=== PATIENT | female | born 1950 | race Caucasian/White ===

== ENCOUNTER 2019-01-17 13:29 | Day surgery (SDC) | payer MEDICARE, OTHER ==
--- NOTE | 2019-01-17 14:06 | ER Document Report ---
ED General - General Chief Complaint: Arm Injury Stated Complaint: FALL/ARM PAIN Time Seen by Provider: 01/17/19 13:53 - HPI Notes: Patient is a 68-year-old female with a history of hypertension and hypothyroidism who presents to the emergency department complaining of right forearm/elbow pain status post fall injury prior to arrival. 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 Patient states that she did not hit her head or lose conscious. She did not injure any other part of her body. Patient states that she has been ambulatory since then without any difficulties. Patient has noticed swelling and bruising to her right proximal forearm with associated pain. Patient states that the pain will radiate down the forearm and slightly proximal to the elbow. She is not on any blood thinning medications aside from a baby aspirin. Her last tetanus was within the last 2 years. Denies drug allergies. Denies any headache, fever, head injury, neck pain, changes in vision/speech/mentation/hearing, URI, sore throat, chest pain, palpitations, syncope, cough, shortness of breath, wheeze, dyspnea, abdominal pain, nausea/vomiting/diarrhea, urinary retention, dysuria, hematuria, loss of control of bowel or bladder, numbness/tingling, saddle anesthesia, muscle paralysis, or rash. - Related Data Allergies/Adverse Reactions: No Known Allergies Allergy (Verified 01/17/19 13:39) Past Medical History - Social History Smoking Status: Former Smoker Drug Abuse: None Family History: Reviewed & Not Pertinent Patient has suicidal ideation: No Patient has homicidal ideation: No - Past Medical History Cardiac Medical History: Reports: Hx Hypertension Renal/ Medical History: Denies: Hx Peritoneal Dialysis Past Surgical History: Reports: Hx Cholecystectomy, Hx Orthopedic Surgery - Bilateral hip Review of Systems - Review of Systems -: Yes All other systems reviewed and negative Physical Exam - Vital signs Vitals: Temp Pulse Resp BP Pulse Ox 97.7 F 66 16 120/65 98 01/17/19 15:53 01/17/19 15:53 01/17/19 15:53 01/17/19 15:53 01/17/19 15:53 - Notes Notes: PHYSICAL EXAMINATION: GENERAL: Well-appearing, well-nourished and in no acute distress. A&Ox4. Answers questions appropriately. HEAD: Atraumatic, normocephalic. Non-tender. EYES: Pupils equal round and reactive to light, extraocular movements intact, sclera anicteric, conjunctiva are normal. ENT: EAC clear b/l. TM's intact b/l without erythema, fluid, or perforation. Nares patent and without discharge. oropharynx clear without exudates. No tonsilar hypertrophy or erythema. Moist mucous membranes. No sinus tenderness. NECK: Normal range of motion, supple without lymphadenopathy. No rigidity/meningismus. No midline tenderness. LUNGS: Breath sounds clear to auscultation bilaterally and equal. No wheezes rales or rhonchi. HEART: Regular rate and rhythm without murmurs, rubs, gallops. ABDOMEN: Soft, nontender, nondistended abdomen. No guarding, no rebound. Normal bowel sounds present. No CVA tenderness bilaterally. Musculoskeletal: Rt UE: there is noted swelling, ecchymosis to the rt proximal posterior forearm with associated tenderness. No tenderness to the humerus, distal forearm/hand, or shoulder. N/V intact distal. + skin abrasion Ext's otherwise b/l: FROM to passive/active. Strength 5+/5. No deficits noted. No bony tenderness of extremities. Extremities: No cyanosis, clubbing, or edema b/l. Peripheral pulses 2+. Capillary refill less than 2 seconds. NEUROLOGICAL: GCS 15. Cranial nerves grossly intact. Normal speech, normal gait. Normal sensory, motor exams. Reflexes 2+ b/l. PSYCH: Normal mood, normal affect. SKIN: see above. Course - Re-evaluation Re-evalutation: 01/17/19 14:06 Pt was given fentanyl by EMS. XR ordered. 01/17/19 14:10 I looked at the raw films and noticed multiple areas of fracture. Waiting for radiologist read and then will consult Orthopedics. Pt pain currently under control. Pt notified of preliminary result(s). Last PO intake was around 8am this morning. 01/17/19 14:40 Patient is an afebrile, well-hydrated, 68-year-old female who presents emergency department with fractures to the right proximal forearm as noted, see results. Vitals are currently acceptable without significant tachycardia, tachypnea, or hypoxia. PE is otherwise unremarkable for any neurovascular compromise, open fracture, or septic joint. I did speak with Dr. Oropeza, orthopedics, who provided the patient with an option of being admitted tonight for surgery tomorrow or follow-up in the office first thing Friday. Patient prefers to be admitted tonight. I did speak with Dr. Oropeza again who accepted patient for admit under his service. Preop labs and imaging ordered. A posterior long-arm splint will be placed as well as a sling provided. Patient given another dose of pain medicine. Patient is in agreement with this plan. - Vital Signs Vital signs: Temp Pulse Resp BP Pulse Ox 97.7 F 66 16 120/65 98 01/17/19 15:53 01/17/19 15:53 01/17/19 15:53 01/17/19 15:53 01/17/19 15:53 - Laboratory Result Diagrams: 01/17/19 15:12 01/17/19 15:12 Laboratory results interpreted by me: 01/17/19 15:12 Seg Neutrophils % 79.5 H Procedures - Immobilization Right Arm Time completed: 15:53 Pre-Proc Neuro Vasc Exam: Normal Immobilizer type: Long arm posterior Performed by: PCT Post-Proc Neuro Vasc Exam: Normal, Unchanged from pre-exam Discharge - Discharge Clinical Impression: Closed right forearm fracture Qualifiers: Encounter type: initial encounter Qualified Code(s): S52.91XA - Unspecified fracture of right forearm, initial encounter for closed fracture Condition: Stable Disposition: ADMITTED INPATIENT Admitting Provider: Dr. Oropeza Unit Admitted: Surgical Floor
--- NOTE | 2019-01-17 14:23 | RADIOLOGY REPORT (SQ) ---
EXAM DESCRIPTION: FOREARM RIGHT COMPLETED DATE/TIME: 01/17/2019 2:12 pm REASON FOR STUDY: Fall, Pain/swelling to RUE COMPARISON: None. NUMBER OF VIEWS: Two views. TECHNIQUE: Two radiographic images acquired of the right forearm, including elbow and wrist in at le ast one projection. LIMITATIONS: None. FINDINGS: MINERALIZATION: Normal. BONES: Proximal ulnar metaphyseal fracture with 6 mm of anterior displacement. There is also a mildl y comminuted radial neck fracture with mild posterior angulation and impaction. Probable coronoid pr ocess fracture, well corticated and possibly chronic. Old avulsion changes medially on the proximal ulna and distal humeral epicondyle. . SOFT TISSUES: Moderate posterior swelling OTHER: No other significant finding. IMPRESSION: Proximal ulnar metaphyseal fracture with 6 mm of anterior displacement. There is also a mildly comminuted radial neck fracture with mild posterior angulation and impaction. Probable coron oid process fracture, well corticated and possibly chronic. Old avulsion changes medially on the pro ximal ulna and distal humeral epicondyle. TECHNICAL DOCUMENTATION: JOB ID: [id number] [place]-72 2010 [employer]- All Rights Reserved Reading location - IP/workstation name: [email or web address]
[2019-01-17] MEDS ORDERED: FENTANYL CITRATE INJ/PF 100 MCG/2 ML AMPUL IV ONE (14:39)
[2019-01-17] MEDS ORDERED: HYDROMORPHONE HCL INJ/PF 2 MG/ML AMPULE IV ONE (14:45)
[2019-01-17 15:42] LABS: ABSOLUTE EOSINOPHILS # (AUTO) 0.1 10^3/uL (0.0-0.6); ABSOLUTE LYMPHOCYTES (AUTO) 1.3 10^3/uL (0.5-4.7); ABSOLUTE MONOCYTES (AUTO) 0.6 10^3/uL (0.1-1.4); ABSOLUTE NEUT (AUTO) 7.8 10^3/uL (1.7-8.2); BASOPHILS % (AUTO) 0.3 % (0-2); EOSINOPHILS % (AUTO) 0.6 % (0-6); HEMATOCRIT 38.8 % (36.0-47.0); HEMOGLOBIN 13.7 g/dL (12.0-15.5); MEAN CORPUSCULAR HEMOGLOBIN 31.5 pg (27.0-33.4); MEAN CORPUSCULAR HGB CONC 35.3 g/dL (32.0-36.0); MEAN CORPUSCULAR VOLUME 89 fl (80-97); MONOCYTES % (AUTO) 6.6 % (3-13); PLATELET COUNT 244 10^3/uL (150-450); RED BLOOD COUNT 4.36 10^6/uL (3.72-5.28); RED CELL DISTRIBUTION WIDTH 13.9 % (11.5-14.0); SEGMENTED NEUTROPHILS % (AUTO) 79.5 % (42-78); TOTAL CELLS COUNTED % (AUTO) 100 %; WHITE BLOOD COUNT 9.8 10^3/uL (4.0-10.5)
[2019-01-17] MEDS ORDERED: ACETAMINOPHEN 325 MG TABLET PO ONE (15:54)
[2019-01-17 16:01] LABS: ALANINE AMINOTRANSFERASE 30 U/L (9-52); ALBUMIN 3.8 g/dL (3.5-5.0); ALKALINE PHOSPHATASE 100 U/L (38-126); ANION GAP 7 (5-19); ASPARTATE AMINO TRANSFERASE 27 U/L (14-36); BILIRUBIN,DIRECT 0.2 mg/dL (0.0-0.4); BILIRUBIN,TOTAL 0.4 mg/dL (0.2-1.3); BLOOD UREA NITROGEN 17 mg/dL (7-20); CALCIUM 9.3 mg/dL (8.4-10.2); CARBON DIOXIDE 30 mmol/L (22-30); CHLORIDE 103 mmol/L (98-107); GLUCOSE 82 mg/dL (75-110); INTERNATIONAL RATION (INR) 0.98; POTASSIUM 4.3 mmol/L (3.6-5.0); PROTHROMBIN TIME 13.5 SEC (11.4-15.4); SODIUM 140.2 mmol/L (137-145)
[2019-01-17 16:02] LABS: PARTIAL THROMBOPLASTIN TIME 30.8 SEC (23.5-35.8)
--- NOTE | 2019-01-17 16:12 | RADIOLOGY REPORT (SQ) ---
EXAM DESCRIPTION: CHEST SINGLE VIEW COMPLETED DATE/TIME: 01/17/2019 3:52 pm REASON FOR STUDY: pre-op COMPARISON: None. FINDINGS: Single-view chest AP portable upright obtained preoperatively. Heart size looks slightly prominent. Some of this may be portable technique. Mild central vascular congestion. Lungs are otherwise clear. IMPRESSION: Top normal to mildly enlarged heart with mild vascular congestion. TECHNICAL DOCUMENTATION: JOB ID: [id number] Reading location - IP/workstation name: [email or web address]
[2019-01-17] MEDS ORDERED: ONDANSETRON 4 MG TAB.RAPDIS SL PRN (23:35)
[2019-01-18] MEDS ORDERED: RINGERS SOLUTION,LACTATED 1,000 ML IV PRN
[2019-01-18] MEDS: MORPHINE SULFATE 10 MG/ML INJ IV PRN ×3 (00:02→09:27)
--- NOTE | 2019-01-18 00:04 | EKG REPORT ---
SEVERITY:- NORMAL ECG - SINUS RHYTHM : Confirmed by: Timo Kapoor 18-Jan-2019 00:04:13
[2019-01-18] MEDS ORDERED: LEVOTHYROXINE SODIUM 0.025 MG TABLET PO SCH (06:00)
--- NOTE | 2019-01-18 06:57 | PDOC H&P ---
History of Present Illness Admission Date/PCP: 01/17/19 15:33 History of Present Illness: TIFFANY WEBSTER is a 68 year old female with a noncontributory past medical history who fell onto an outstretched right upper extremity and sustained a variant of the Monteggia fracture. Patient is admitted to the orthopedic service for fracture management. Past Medical History Cardiac Medical History: Reports: Hypertension Denies: Congestive Heart Failure, Myocardial Infarction Pulmonary Medical History: Denies: Asthma, Bronchitis, Chronic Obstructive Pulmonary Disease (COPD), Pneumonia, Tuberculosis Neurological Medical History: Denies: Seizures Endocrine Medical History: Reports: Hypothyroidism Renal/ Medical History: Denies: End Stage Renal Disease GI Medical History: Denies: Cirrhosis, Gastroesophageal Reflux Disease Musculoskeltal Medical History: Denies: Arthritis Psychiatric Medical History: Denies: Bipolar Disorder, Depression Hematology: Denies: Anemia, Bleeding Tendencies Past Surgical History Past Surgical History: Reports: Cholecystectomy, Orthopedic Surgery - Bilateral hip Social History Smoking Status: Former Smoker - Advance Directive Resuscitation Status: Full Code Family History Family History: Reviewed & Not Pertinent Parental Family History Reviewed: No Children Family History Reviewed: No Sibling(s) Family History Reviewed.: No Medication/Allergy Home Medications: Aspirin [Ecotrin 81 mg EC Tablet] 81 mg PO DAILY 01/17/19 Levothyroxine Sodium [Levo-T] 25 mcg PO DAILY 01/17/19 Lisinopril/Hydrochlorothiazide [Lisinopril-Hctz 10-12.5 mg Tab] 1 tab PO DAILY 01/17/19 Allergies/Adverse Reactions: No Known Allergies Allergy (Verified 01/17/19 13:39) Review of Systems All systems: as per H Physical Exam Vital Signs: Temp Pulse Resp BP Pulse Ox 36.7 C 70 18 143/59 H 99 01/17/19 23:58 01/17/19 23:58 01/17/19 23:58 01/17/19 23:58 01/17/19 23:58 Intake & Output 01/16/19 01/17/19 01/18/19 06:59 06:59 06:59 Intake Total 320 Balance 320 Weight 124.7 kg Physical Exam: The patient is an overweight if not obese middle-aged white female lying comfortably in bed at upper extremity is immobilized in a plaster splint. Fingertips are visible. There is brisk capillary refill. Sensory examination is intact to light touch. General appearance: PRESENT: no acute distress, mild distress, obese Head exam: PRESENT: normocephalic Respiratory exam: PRESENT: unlabored Pulses: PRESENT: +1 pedal pulses bilateral Vascular exam: PRESENT: normal capillary refill GI/Abdominal exam: PRESENT: soft Rectal exam: PRESENT: deferred Extremities exam: PRESENT: other - Right upper extremity immobilized in plaster splint. Fingertips are visible. There is brisk capillary refill in each of the digits. Sensory examination is intact to light touch. Neurological exam: PRESENT: alert, awake, oriented to person, oriented to place, oriented to time, oriented to situation. ABSENT: motor sensory deficit Psychiatric exam: PRESENT: appropriate affect, normal mood. ABSENT: homicidal ideation, suicidal ideation Skin exam: PRESENT: dry, intact, warm. ABSENT: cyanosis, rash Results Laboratory Results: 01/17/19 15:12 01/17/19 15:12 01/17/19 01/17/19 15:12 15:12 WBC 9.8 RBC 4.36 Hgb 13.7 Hct 38.8 MCV 89 MCH 31.5 MCHC 35.3 RDW 13.9 Plt Count 244 Seg Neutrophils % 79.5 H Lymphocytes % 13.0 Monocytes % 6.6 Eosinophils % 0.6 Basophils % 0.3 Absolute Neutrophils 7.8 Absolute Lymphocytes 1.3 Absolute Monocytes 0.6 Absolute Eosinophils 0.1 Absolute Basophils 0.0 Sodium 140.2 Potassium 4.3 Chloride 103 Carbon Dioxide 30 Anion Gap 7 BUN 17 Creatinine 1.10 Est GFR ( Amer) > 60 Est GFR (Non-Af Amer) 49 L Glucose 82 Calcium 9.3 Total Bilirubin 0.4 AST 27 ALT 30 Alkaline Phosphatase 100 Total Protein 7.0 Albumin 3.8 Impressions: Forearm X-Ray 01/17/19 13:50 IMPRESSION: Proximal ulnar metaphyseal fracture with 6 mm of anterior displacement. There is also a mildly comminuted radial neck fracture with mild posterior angulation and impaction. Probable coronoid process fracture, well corticated and possibly chronic. Old avulsion changes medially on the proximal ulna and distal humeral epicondyle. Chest X-Ray 01/17/19 14:46 IMPRESSION: Top normal to mildly enlarged heart with mild vascular congestion. Status: Imported from PACS Assessment & Plan - Diagnosis (1) Closed right forearm fracture Qualifiers: Encounter type: initial encounter Qualified Code(s): S52.91XA - Unspecified fracture of right forearm, initial encounter for closed fracture Is this a current diagnosis for this admission?: Yes Plan: 68-year-old white female with a fall onto an outstretched dominant right hand and now a Monteggia variant. I think the patient be best served with an open reduction internal fixation with radial head replacement. This can be performed under choice anesthesia on an outpatient basis. Anticipate little in the way of blood loss but postoperative mobilization and limited weightbearing on the right upper extremity. (2) Hypertension Is this a current diagnosis for this admission?: Yes Plan: Per preop management (3) Hypothyroidism Is this a current diagnosis for this admission?: Yes Plan: Per preop management - Time Time Spent: 50 to 70 Minutes Anticipated discharge: Home Within: within 24 hours
[2019-01-18] MEDS ORDERED: TRANEXAMIC ACID INJ/PF 1,000 MG/10 ML SDV IV PRN (08:57)
[2019-01-18] MEDS ORDERED: CEFAZOLIN 2 GM/D5W RTU 2 GM/50 ML RTUPB IV PRN (08:57)
[2019-01-18] MEDS ORDERED: LISINOPRIL 10 MG TABLET PO SCH (10:00)
[2019-01-18] MEDS ORDERED: HYDROCHLOROTHIAZIDE 12.5 MG TABLET PO SCH (10:00)
[2019-01-18] MEDS ORDERED: SUCCINYLCHOLINE CHLORIDE INJ 200 MG/10 ML VIAL ONE (12:01)
[2019-01-18] MEDS ORDERED: CEFAZOLIN INJ 1 GM VIAL ONE (12:02)
[2019-01-18] MEDS ORDERED: KETOROLAC TROMETHAMINE 60 MG/2 ML SDV ONE (13:57)
[2019-01-18] MEDS ORDERED: ONDANSETRON HCL INJ/PF 4 MG/2 ML SDV ONE (13:58)
[2019-01-18] MEDS ORDERED: FENTANYL CITRATE INJ/PF 100 MCG/2 ML AMPUL ONE ×2 (13:58→17:17)
[2019-01-18] MEDS ORDERED: ACETAMINOPHEN 1,000 MG/100 ML RTUPB IV ONE (13:58)
[2019-01-18] MEDS ORDERED: MIDAZOLAM 2 MG/2 ML INJ ONE (13:58)
[2019-01-18] MEDS ORDERED: DEXAMETHASONE SOD PHOSPHATE INJ 4 MG/1 ML VIAL ONE (13:58)
[2019-01-18] MEDS ORDERED: PROPOFOL INJ 200 MG/20 ML VIAL IV ONE (13:58)
[2019-01-18] MEDS ORDERED: POLYMYXIN B SULFATE INJ 500000 UNIT VIAL ONE (14:11)
[2019-01-18] MEDS ORDERED: BUPIVACAINE HCL 0.25% /EPINEPHRINE INJ/PF 30 ML SDV ONE (14:11)
[2019-01-18] MEDS ORDERED: TRANEXAMIC ACID INJ/PF 1,000 MG/10 ML SDV IV ONE (14:30)
[2019-01-18] MEDS ORDERED: ONDANSETRON HCL INJ/PF 4 MG/2 ML SDV IV PRN (14:52)
[2019-01-18] MEDS ORDERED: PROMETHAZINE HCL INJ 25 MG/1 ML VIAL IV PRN ×2 (14:52)
[2019-01-18] MEDS ORDERED: MEPERIDINE HCL/PF INJ 25 MG/1 ML DISP.SYRIN IV PRN (14:52)
[2019-01-18] MEDS ORDERED: DIPHENHYDRAMINE HCL 50 MG/ML VIAL IV PRN (14:52)
[2019-01-18] MEDS ORDERED: FENTANYL CITRATE INJ/PF 100 MCG/2 ML AMPUL IV PRN ×3 (14:52)
[2019-01-18] MEDS ORDERED: MORPHINE SULFATE 10 MG/ML INJ IV PRN ×2 (14:52→16:30)
--- NOTE | 2019-01-18 15:57 | Discharge Summary ---
Discharge Summary (SDC) - Discharge Final Diagnosis: Right forearm fracture Date of Surgery: 01/18/19 Discharge Date: 01/18/19 Condition: Good Treatment or Instructions: Elevate right upper extremity Prescriptions: Oxycodone HCl/Acetaminophen [Percocet 5-325 mg Tablet] 1 tab PO Q6 PRN #25 tab PRN Reason: Discharge Diet: As Tolerated, Regular Respiratory Treatments at Home: Deep Breathing/Coughing Discharge Activity: Balance Activity w/Rest, No Driving, No tub bath Home Care Assistance: None Needed Report the Following to Your Physician Immediately: Shortness of Breath, Fever over 101 Degrees, Drainage-Foul Smelling
--- NOTE | 2019-01-18 16:01 | Operative Report ---
Operative Report DATE OF SURGERY: 01/18/19 PREOPERATIVE DIAGNOSIS: Right forearm fracture OPERATION: Open reduction internal fixation right radial head fracture. Open reduction internal fixation right ulna fracture SURGEON: MARY KLELY ANESTHESIA: GA ESTIMATED BLOOD LOSS: 25 PROCEDURE: The patient supine Afrin table the right upper extremities prepped and draped in sterile fashion. Limb is elevated for exsanguination tourniquet inflated 280 torr. Longitudinal incisions made over the proximal ulnar and sharp dissection was carried incision to the underlying bone. The fracture was identified. Its reduced under direct visualization. It secured with a 7-hole Dalton titanium plate and 3 screws proximally and 3 screws distally. Hardware placement and fracture reduction were checked fluoroscopically and felt to be adequate. Next incision was made over the proximal radius and sharp dissection was used to make a linear incision through the radial annular ligament. The fracture was identified. A Acumed 3-hole small curved radial head plate is applied and secured with 3 screws proximally and 3 screws distally. Reduction in his hardware placement are again checked fluoroscopically and felt to be adequate. The tourniquet is deflated hemostasis obtained with electrocautery. The wounds are irrigated with bulb lavage. Closed in layers interrupted Vicryl followed by nicki. A sterile compressive dressing posterior plaster splint were applied the patient's return to PACU in satisfactory condition.
[2019-01-18] MEDS ORDERED: OXYCODONE HCL IR 5 MG TABLET PO PRN (16:19)
--- NOTE | 2019-01-18 16:54 | RADIOLOGY REPORT (SQ) ---
EXAM DESCRIPTION: NO CHG FLUORO; FOREARM RIGHT COMPLETED DATE/TIME: 01/18/2019 4:47 pm; 01/18/2019 4:48 pm REASON FOR STUDY: RT FOREARM ORIF COMPARISON: 01/17/2019. FLUOROSCOPY TIME: 0.6 minutes. 13 images saved to PACS. TECHNIQUE: Intra-operative images acquired during surgical procedure to evaluate progress. NUMBER OF IMAGES: 13 images. LIMITATIONS: None. FINDINGS: Images acquired during surgical fixation and hardware placement. IMPRESSION: IMAGE(S) OBTAINED DURING PROCEDURE. COMMENT: Quality ID [id number]: Final reports for procedures using fluoroscopy that document radiation exp osure indices, or exposure time and number of fluorographic images (if radiation exposure indices are not available) Please consult full operative report of the attending physician for description of the procedure. TECHNICAL DOCUMENTATION: JOB ID: [id number] [employer]- All Rights Reserved Reading location - IP/workstation name: [email or web address]
--- NOTE | 2019-01-18 16:54 | RADIOLOGY REPORT (SQ) ---
EXAM DESCRIPTION: NO CHG FLUORO; FOREARM RIGHT COMPLETED DATE/TIME: 01/18/2019 4:47 pm; 01/18/2019 4:48 pm REASON FOR STUDY: RT FOREARM ORIF COMPARISON: 01/17/2019. FLUOROSCOPY TIME: 0.6 minutes. 13 images saved to PACS. TECHNIQUE: Intra-operative images acquired during surgical procedure to evaluate progress. NUMBER OF IMAGES: 13 images. LIMITATIONS: None. FINDINGS: Images acquired during surgical fixation and hardware placement. IMPRESSION: IMAGE(S) OBTAINED DURING PROCEDURE. COMMENT: Quality ID [id number]: Final reports for procedures using fluoroscopy that document radiation exp osure indices, or exposure time and number of fluorographic images (if radiation exposure indices are not available) Please consult full operative report of the attending physician for description of the procedure. TECHNICAL DOCUMENTATION: JOB ID: [id number] [employer]- All Rights Reserved Reading location - IP/workstation name: [email or web address]
[2019-01-18 20:38] VITALS: BP 127/62
== END 2019-01-18 21:10 | disposition home or self-care (01) ==
LOC: OROUT 13:29 → ER 13:29 → OROUT 15:33 → EH 15:33 → UNDOADMIN 15:33 → EH 20:14 → 4N 20:14 → UNDODISIN 01-18 21:10 → OROUT 01-18 21:10
PROVIDERS: ATTEND Orthopaedic Surgery
DX: S52.271A Monteggia's fracture of right ulna, initial encounter for closed fracture (principal); S52.131A Displaced fracture of neck of right radius, initial encounter for closed fracture; W19.XXXA Unspecified fall, initial encounter; E03.9 Hypothyroidism, unspecified; I11.9 Hypertensive heart disease without heart failure; J81.1 Chronic pulmonary edema; E66.9 Obesity, unspecified; Z68.41 Body mass index [BMI] 40.0-44.9, adult; Z01.818 Encounter for other preprocedural examination; Z87.891 Personal history of nicotine dependence; Z79.82 Long term (current) use of aspirin; Z79.899 Other long term (current) drug therapy; Z96.643 Presence of artificial hip joint, bilateral
CPT/HCPCS: 24665; 24685; 93005; 99285; 96374; 36415; 85025; 85610; 85730; 80053; 71045; 73090 ×2; 93010; 29105; C1713 ×7; C1769; A9270 ×4; J2250; J3490 ×3; J0690; J1100; J1885; J3010; J2270; J1170; J0330; J2405; J7120; J2704; J0131; 01740

== ENCOUNTER 2019-07-21 06:50 | Day surgery (SDC) | payer MEDICARE, OTHER ==
[2019-07-14 08:42] LABS: HEMATOCRIT 39.1 % (36.0-47.0); HEMOGLOBIN 13.8 g/dL (12.0-15.5); MEAN CORPUSCULAR HGB CONC 35.3 g/dL (32.0-36.0); MEAN CORPUSCULAR VOLUME 88 fl (80-97); PLATELET COUNT 215 10^3/uL (150-450); RED BLOOD COUNT 4.46 10^6/uL (3.72-5.28); RED CELL DISTRIBUTION WIDTH 13.9 % (11.5-14.0); WHITE BLOOD COUNT 5.2 10^3/uL (4.0-10.5)
[2019-07-14 08:55] LABS: ANION GAP 7 (5-19); BLOOD UREA NITROGEN 13 mg/dL (7-20); CALCIUM 9.3 mg/dL (8.4-10.2); CARBON DIOXIDE 30 mmol/L (22-30); CHLORIDE 104 mmol/L (98-107); GLUCOSE 101 mg/dL (75-110); POTASSIUM 3.9 mmol/L (3.6-5.0)
--- NOTE | 2019-07-14 09:38 | RADIOLOGY REPORT (SQ) ---
EXAM DESCRIPTION: CHEST PA/LATERAL COMPLETED DATE/TIME: 07/14/2019 9:30 am REASON FOR STUDY: PRE-OP COMPARISON: 01/17/2019 EXAM PARAMETERS: NUMBER OF VIEWS: two views TECHNIQUE: Digital Frontal and Lateral radiographic views of the chest acquired. RADIATION DOSE: NA LIMITATIONS: none FINDINGS: LUNGS AND PLEURA: No opacities, masses or pneumothorax. No pleural effusion. MEDIASTINUM AND HILAR STRUCTURES: No masses or contour abnormalities. HEART AND VASCULAR STRUCTURES: Heart normal size. No evidence for failure. BONES: There are degenerative changes in the dorsal spine. HARDWARE: None in the chest. OTHER: No other significant finding. IMPRESSION: NO SIGNIFICANT RADIOGRAPHIC FINDING IN THE CHEST. TECHNICAL DOCUMENTATION: JOB ID: [id number] [employer]- All Rights Reserved Reading location - IP/workstation name: [email or web address]
[2019-07-14 09:59] LABS: APPEARANCE,URINE SLIGHTLY-CLOUDY; BILIRUBIN,URINE NEGATIVE (NEGATIVE); COLOR,URINE YELLOW; GLUCOSE, URINE NEGATIVE (NEGATIVE); KETONES,URINE NEGATIVE (NEGATIVE); LEUKOCYTE ESTERASE,URINE NEGATIVE (NEGATIVE); NITRITE,URINE NEGATIVE (NEGATIVE); PROTEIN,URINE NEGATIVE (NEGATIVE); URINE SPECIFIC GRAVITY 1.015; UROBILINOGEN,URINE NEGATIVE mg/dL (<2.0)
--- NOTE | 2019-07-14 12:19 | EKG REPORT ---
SEVERITY:- BORDERLINE ECG - SINUS RHYTHM CONSIDER [facility] OR POSTERIOR INFARCT : Confirmed by: Lázaro Mcgregor MD 14-Jul-2019 12:18:35
[~2019-07-21 06:50] MED LIST: CEFAZOLIN SODIUM 2 GM in DEXTROSE 5%-WATER 100 ML IV PRN; LACTATED RINGERS 1000 ML IV PRN; LIDOCAINE 0.5% INJ-PF (5 MG/ML) 50 ML SDV SUBCUT PRN
[2019-07-21] MEDS ORDERED: MIDAZOLAM 2 MG/2 ML INJ ONE (07:48)
[2019-07-21] MEDS ORDERED: FENTANYL CITRATE INJ/PF 100 MCG/2 ML AMPUL ONE (07:48)
[2019-07-21] MEDS ORDERED: PROPOFOL INJ 200 MG/20 ML VIAL IV ONE (07:49)
[2019-07-21] MEDS ORDERED: ONDANSETRON HCL INJ/PF 4 MG/2 ML SDV ONE (09:17)
[2019-07-21] MEDS ORDERED: SUCCINYLCHOLINE CHLORIDE INJ 200 MG/10 ML VIAL ONE (09:17)
[2019-07-21] MEDS ORDERED: PHENYLEPHRINE HCL INJ/PF 10 MG/1 ML SDV ONE (09:17)
[2019-07-21] MEDS ORDERED: DEXAMETHASONE SOD PHOSPHATE INJ 4 MG/1 ML VIAL ONE (09:17)
[2019-07-21] MEDS ORDERED: LIDOCAINE 2% INJ-PF (20 MG/ML) 2 ML AMPUL ONE (09:17)
[2019-07-21] MEDS ORDERED: BUPIVACAINE HCL 0.5%-EPI 1:200000 INJ/PF 30 ML VIAL ONE (09:26)
[2019-07-21] MEDS ORDERED: PROMETHAZINE HCL INJ 25 MG/1 ML VIAL IV PRN (09:28)
[2019-07-21] MEDS ORDERED: DIPHENHYDRAMINE HCL 50 MG/ML VIAL IV PRN (09:28)
[2019-07-21] MEDS ORDERED: MORPHINE SULFATE 10 MG/ML INJ IV PRN (09:28)
[2019-07-21] MEDS ORDERED: MEPERIDINE HCL/PF INJ 25 MG/1 ML DISP.SYRIN IV PRN (09:28)
[2019-07-21] MEDS ORDERED: FENTANYL CITRATE INJ/PF 100 MCG/2 ML AMPUL IV PRN ×3 (09:28)
[2019-07-21] MEDS ORDERED: TRANEXAMIC ACID INJ/PF 1,000 MG/10 ML SDV ONE (09:30)
--- NOTE | 2019-07-21 10:41 | PDOC DISCHARGE SUMMARY ---
Impression - Admit/DC Date/PCP Admission Date/Primary Care Provider: DANITZA NG MD Discharge Date: 07/21/19 - Discharge Diagnosis (1) Monteggia's fracture of right ulna, subsequent encounter for closed fracture with nonunion Is this a current diagnosis for this admission?: Yes - Assessment Summary: Patient is a 68-year-old white female status post ORIF of a right Monteggia fracture is gone on to nonunion. Patient is scheduled to undergo an elective takedown of the nonunion, repeat ORIF of the proximal ulna, radial head resection and prosthetic reconstruction. There is bone grafting of the nonunion site of the ulna. - Additional Information Resuscitation Status: Full Code Discharge Diet: As Tolerated, Regular Discharge Activity: Balance Activity w/Rest, No tub bath Referrals: DANITZA NG MD [Primary Care Provider] - Prescriptions: Oxycodone HCl/Acetaminophen [Percocet 5-325 mg Tablet] 1 tab PO Q6 #40 tab Home Medications: Aspirin [Ecotrin 81 mg EC Tablet] 81 mg PO DAILY 01/18/19 Levothyroxine Sodium [Synthroid 0.025 mg Tablet] 0.25 mg PO Q6AM 01/18/19 Lisinopril/Hydrochlorothiazide [Zestoretic 10-12.5 mg Tablet] 1 tab PO DAILY 01/18/19 Oxycodone HCl/Acetaminophen [Percocet 5-325 mg Tablet] 1 tab PO Q6 #40 tab 07/21/19 History of Present Illiness History of Present Illness: TIFFANY WEBSTER is a 68 year old female Physical Exam Vital Signs: Temp Pulse Resp BP Pulse Ox 36.7 C 87 18 161/79 H 99 07/21/19 07:00 07/21/19 07:00 07/21/19 07:00 07/21/19 07:00 07/21/19 07:00 Intake & Output 07/20/19 07/21/19 07/22/19 06:59 06:59 06:59 Intake Total 100 Balance 100 Weight 122.47 kg Results Laboratory Results: WBC 5.2 10^3/uL (4.0-10.5) 07/14/19 08:06 RBC 4.46 10^6/uL (3.72-5.28) 07/14/19 08:06 Hgb 13.8 g/dL (12.0-15.5) 07/14/19 08:06 Hct 39.1 % (36.0-47.0) 07/14/19 08:06 MCV 88 fl (80-97) 07/14/19 08:06 MCH 31.0 pg (27.0-33.4) 07/14/19 08:06 MCHC 35.3 g/dL (32.0-36.0) 07/14/19 08:06 RDW 13.9 % (11.5-14.0) 07/14/19 08:06 Plt Count 215 10^3/uL (150-450) 07/14/19 08:06 Sodium 141.3 mmol/L (137-145) 07/14/19 08:06 Potassium 4.0 mmol/L (3.6-5.0) 07/21/19 08:09 Chloride 104 mmol/L (98-107) 07/14/19 08:06 Carbon Dioxide 30 mmol/L (22-30) 07/14/19 08:06 Anion Gap 7 (5-19) 07/14/19 08:06 BUN 13 mg/dL (7-20) 07/14/19 08:06 Creatinine 0.89 mg/dL (0.52-1.25) 07/14/19 08:06 Est GFR ( Amer) > 60 (>60) 07/14/19 08:06 Est GFR (MDRD) Non-Af > 60 (>60) 07/14/19 08:06 Glucose 101 mg/dL (75-110) 07/14/19 08:06 Calcium 9.3 mg/dL (8.4-10.2) 07/14/19 08:06 Urine Color YELLOW 07/14/19 08:05 Urine Appearance SLIGHTLY-CLOUDY 07/14/19 08:05 Urine pH 5.0 (5.0-9.0) 07/14/19 08:05 Ur Specific [place] 1.015 07/14/19 08:05 Urine Protein NEGATIVE mg/dL (NEGATIVE) 07/14/19 08:05 Urine Glucose (UA) NEGATIVE mg/dL (NEGATIVE) 07/14/19 08:05 Urine Ketones NEGATIVE mg/dL (NEGATIVE) 07/14/19 08:05 Urine Blood MODERATE (NEGATIVE) H 07/14/19 08:05 Urine Nitrite NEGATIVE (NEGATIVE) 07/14/19 08:05 Urine Bilirubin NEGATIVE (NEGATIVE) 07/14/19 08:05 Urine Urobilinogen NEGATIVE mg/dL (<2.0) 07/14/19 08:05 Ur Leukocyte Esterase NEGATIVE (NEGATIVE) 07/14/19 08:05 Urine WBC (Auto) 2 /HPF 07/14/19 08:05 Urine RBC (Auto) 13 /HPF 07/14/19 08:05 U Hyaline Cast (Auto) 3 /LPF 07/14/19 08:05 Urine Bacteria (Auto) 1+ /HPF 07/14/19 08:05 Squamous Epi Cells Auto 2 /HPF 07/14/19 08:05 Urine Mucus (Auto) RARE /LPF 07/14/19 08:05 Urine Ascorbic Acid NEGATIVE (NEGATIVE) 07/14/19 08:05 Impressions: Chest X-Ray 07/14/19 00:00 IMPRESSION: NO SIGNIFICANT RADIOGRAPHIC FINDING IN THE CHEST. Stroke Is this a Stroke Patient?: No Stroke Pt being discharged on Anti-thrombolytic therapy?: No Reason(s) for not prescribing Anti-thrombolytic therapy:: Not indicated Acute Heart Failure - Is this a Heart Failure Patient?: No
--- NOTE | 2019-07-21 10:45 | Operative Report ---
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 Cultures to microbiology ESTIMATED BLOOD LOSS: 75 PROCEDURE: Patient in a left lateral decubitus position on the operating table the right upper extremities prepped and draped in sterile fashion. A sterile tourniquet is placed and tourniquet inflated 250 torr. A longitudinal incision was made over the olecranon extending distally in line with the previous surgical approach. The underlying plate is visualized and removed uneventfully. Cultures are sent. The nonunion site has gross clinical motion and this is scraped and debrided with a curette and then a rondure. A 10 hole titanium olecranon plate is placed and secured proximally with 2 screws. The distal fragment was then brought up to the plate and a compression screw was placed. The fracture reduction and hardware placement checked fluoroscopically and felt to be adequate. The remainder of the screw holes are utilized. Attention is now turned to the radial head. A longitudinal incision was made over the radial head in line with the previous surgical approach. The underlying radial head plate is visualized and removed uneventfully. The radial head is resected at about 10 mm. It measures 24 mm in diameter. Subsequently the proximal radius is prepared for an 8 mm stem with a 24 x 10 mm prosthetic reconstruction. This is impacted into position. The tracking of the radial head both with pronation and supination as well as flexion extension of the elbow is evaluated fluoroscopically and felt to be adequate. The tourniquet is deflated. Wound is irrigated with bulb lavage. Stasis obtained with electrocautery. The ulnar defect is packed using V toss bone graft substitute. The wound was then closed in layers interrupted Vicryl followed by nylon S. A sterile compressive dressing was applied and the patient's return to the PACU in satisfactory condition.
[2019-07-21] MEDS ORDERED: OXYCODONE-ACETAMINOPHEN 5-325 MG TABLET PO PRN (11:00)
--- NOTE | 2019-07-21 11:17 | RADIOLOGY REPORT (SQ) ---
EXAM DESCRIPTION: NO CHG FLUORO; FOREARM RIGHT COMPLETED DATE/TIME: 07/21/2019 11:01 am REASON FOR STUDY: ORIF RT ELBOW/FOREARM ASST WITH FLUORO IN OR; ORIF RIGHT FOREARM/ELBOW ASST WITH F LUORO IN OR S52.279D MONTEGGIA'S FX UNSP ULNA, SUBS FOR CLOS FX W ROUTN Z79.899 OTHER SNF (C URRENT) DRUG THERAPY COMPARISON: None. FLUOROSCOPY TIME: 0.6 minutes 3 images saved to PACS. TECHNIQUE: Intra-operative images acquired during surgical procedure to evaluate progress. NUMBER OF IMAGES: 3 LIMITATIONS: None. FINDINGS: Limited intraoperative fluoroscopic images obtained to evaluate progress. Please see oper ative report for detailed description IMPRESSION: IMAGE(S) OBTAINED DURING PROCEDURE. COMMENT: Quality ID 145: Final reports for procedures using fluoroscopy that document radiation exp osure indices, or exposure time and number of fluorographic images (if radiation exposure indices are not available) Please consult full operative report of the attending physician for description of the procedure. TECHNICAL DOCUMENTATION: JOB ID: [id number] [employer]- All Rights Reserved Reading location - IP/workstation name: [email or web address]
--- NOTE | 2019-07-21 11:17 | RADIOLOGY REPORT (SQ) ---
EXAM DESCRIPTION: NO CHG FLUORO; FOREARM RIGHT COMPLETED DATE/TIME: 07/21/2019 11:01 am REASON FOR STUDY: ORIF RT ELBOW/FOREARM ASST WITH FLUORO IN OR; ORIF RIGHT FOREARM/ELBOW ASST WITH F LUORO IN OR S52.279D MONTEGGIA'S FX UNSP ULNA, SUBS FOR CLOS FX W ROUTN Z79.899 OTHER ALF (C URRENT) DRUG THERAPY COMPARISON: None. FLUOROSCOPY TIME: 0.6 minutes 3 images saved to PACS. TECHNIQUE: Intra-operative images acquired during surgical procedure to evaluate progress. NUMBER OF IMAGES: 3 LIMITATIONS: None. FINDINGS: Limited intraoperative fluoroscopic images obtained to evaluate progress. Please see oper ative report for detailed description IMPRESSION: IMAGE(S) OBTAINED DURING PROCEDURE. COMMENT: Quality ID 145: Final reports for procedures using fluoroscopy that document radiation exp osure indices, or exposure time and number of fluorographic images (if radiation exposure indices are not available) Please consult full operative report of the attending physician for description of the procedure. TECHNICAL DOCUMENTATION: JOB ID: [id number] [employer]- All Rights Reserved Reading location - IP/workstation name: [email or web address]
[2019-07-21] MEDS ORDERED: ACETAMINOPHEN 1,000 MG/100 ML RTUPB IV ONE (11:24)
[2019-07-21] MEDS ORDERED: HYDROMORPHONE HCL INJ/PF 2 MG/ML AMPULE ONE (11:24)
[2019-07-21] MEDS ORDERED: OXYCODONE-ACETAMINOPHEN 5-325 MG TABLET ONE (12:34)
[2019-07-21 14:44] VITALS: BP 140/70
== END 2019-07-21 14:15 | disposition home or self-care (01) ==
LOC: OROUT 06:50
PROVIDERS: ATTEND Orthopaedic Surgery
DX: S52.271K Monteggia's fracture of right ulna, subsequent encounter for closed fracture with nonunion (principal); X58.XXXD Exposure to other specified factors, subsequent encounter; M24.121 Other articular cartilage disorders, right elbow; M79.601 Pain in right arm; I10 Essential (primary) hypertension; E03.9 Hypothyroidism, unspecified; Z79.899 Other long term (current) drug therapy; Z96.643 Presence of artificial hip joint, bilateral
CPT/HCPCS: 24130; 24635; 20680; 93005; 36415 ×2; 87070; 87205; 84132; 85027; 87075; 80048; 81001; 88305 ×2; 88311; 71046; 73090; 93010; C1713 ×6; J2250; J3490 ×3; J0690; J1100; J3010; A9270; J1170; J2370; J0330; J2405; J7060; J2704; J0131; 01830